=== PATIENT | female | born 1960 | race African-American/Black ===

== ENCOUNTER 2016-05-06 07:13 | Emergency (ER) | payer OTHER ==
[2016-05-06 07:20] VITALS: TEMP 97.9; BMI 42.7
--- NOTE | 2016-05-06 07:43 | EDPRACDOC ---
- General Information Chief Complaint: Back Pain Stated Complaint: LEFT FLANK PAIN Time Seen by Provider: 05/06/16 07:39 Information Source: Patient Mode Of Arrival: Car Home Medications: Home Medications Aspirin/Acetaminophen/Caffeine [[employer] Ex-Str Powder Packet] 1 rosy PO DAILY PRN 01/10/16 Cyclobenzaprine HCl [Flexeril] 10 mg PO TID #21 tab 01/10/16 Hydrocodone Bit/Acetaminophen [[place] 5-325 Tablet] 1 each PO Q4H #10 tab Prednisone [Deltasone, Orasone] 2 tabs PO DAILY #20 tablet 01/10/16 Diazepam [Valium] 5 mg PO TID PRN #10 tablet 05/06/16 Oxycodone HCl [Roxicodone] 5 mg PO Q4 PRN #10 tablet 05/06/16 Allergies/Adverse Reactions: Allergies Allergy/AdvReac Type Severity Reaction Status Date / Time No Known Allergies Allergy Verified 01/10/16 16:00 - History of Present Illness Onset: THIS AM HPI: WOKE UP THIS AM WITH LEFT LOWER BACK PAIN, 10/10. WORSE WITH CERTAIN MOVEMENTS. NO INJURY. PAIN WAXES AND WANES. PT HAS WORKED IN A LONG TERM FOR OVER 15 YEARS. Pain Location: Reports: Lumbar ED Past Medical History - History Reviewed Yes Nurses notes reviewed and agree except as marked - Patient Medical History Psychological History: Denies: Depression Surgical History: Denies: Hysterectomy - Social Medical History Smoking Status: Heavy tobacco smoker (5 or more cigarettes/day or daily pipe/ cigar) EDM Review of Systems - Review of Systems ROS Negative Except as Marked: Yes All systems reviewed and were negative except as marked - Physical Exam Constitutional: Alert (Awake), No apparent distress Oriented to: Time, Person, Place Last recorded Vital Signs: Last Vital Signs Temp 97.9 F 05/06/16 07:18 Pulse 82 05/06/16 07:18 Resp 18 05/06/16 07:18 BP 154/76 05/06/16 07:18 Pulse Ox 96 05/06/16 07:18 Oxygen Pulse Oxygen Saturation 96 O2 Device Room Air Oxygen Flow Rate Fraction of Inspired Oxygen ( FIO2) - HEENT Head: Normal ( normocephalic) Eye Exam: Normal (PERRL, EOMI, Sclera white) Oropharynx: Normal (Pharynx:Moist without exudate,Gums-no swelling) Nose: No Symptoms Reported (septum midline) Neck: Normal (FROM, trachea at midline) - Respiratory/Cardiovascular Respiratory: Normal - CTA (BBS clear to auscultation without adventitious sounds ) Cardiovascular: Normal (RRR without murmur, gallop or rub) - GI Auscultation: Normal (NABS) Palpation: Normal (Soft,No rebound or guarding, non distended) Tenderness: Non tender Kwan's Sign: Negative - Musculoskeletal Back: Normal (Non-Tender) Extremities: Normal (Normal tone, Pulses 2+ No cyanosis or edema, FROM) - Integumentary Skin: Normal, Warm, Dry Lymphatics: Normal (no adenopathy) - Neurologic Memory Impaired: Normal Motor Function: Normal (Normal tone, Pulses 2+ No cyanosis or edema, FROM) Cranial Nerve: Normal (CN II-X11 intact sensation, strength 5/5) Cerebellar: Normal Mood Description: Normal Perception: Normal ED Back Exam - Neurologic Motor Deficit: None - Musculoskeletal Lumbar: Tender (LEFT LUMBAR) Decision Time to Discharge: 07:44 - Departure Yes I personally saw and evaluated the patient. Disposition: Home Condition: Stable Final Diagnosis: Acute low back pain Instructions: Acute Low Back Pain (ED) Education/Counseling Given To: Patient Education/Counseling Given Regarding: Diagnosis Referrals: Casimiro Mullins MD [Primary Care Provider] - Two Weeks Forms: Excuse Note
[2016-05-06] MEDS ORDERED: OXYCODONE HCL 5 MG TABLET PO ONE (07:44)
[2016-05-06] MEDS ORDERED: DIAZEPAM 5 MG TAB PO ONE (07:44)
[2016-05-06 07:52] VITALS: BP 147/83; PULSE 78
== END 2016-05-06 07:53 | disposition home or self-care (01) ==
LOC: ED 07:13
DX: M54.5 Low back pain (principal)
CPT/HCPCS: 99282; J3490